=== PATIENT | male | born 1955 | race Caucasian/White ===

== ENCOUNTER 2023-07-31 17:01 | Inpatient (IN) | payer MEDICARE, OTHER, SELFPAY ==
[~2023-07-31] VITALS: Ht 182.9 cm; Wt 70.1 kg
[2023-07-31] MEDS ORDERED: levETIRAcetam INJection 1,000 MG in D5W 100 ML IV ONE (18:05)
[2023-07-31] MEDS ORDERED: dexAMETHasone 20MG/5ML VIAL IV ONE (18:10)
[2023-07-31 18:13] LABS: BASO # 0.1 10^3/uL (0.0-0.2); BASO % 0.5 % (0.0-1.0); EOS # 0.3 10^3/uL (0.0-0.5); EOS % 1.8 % (0.0-3.0); HEMATOCRIT 41.2 % (42.0-52.0); HEMOGLOBIN 13.9 g/dl (13.5-17.5); LYMPH # 1.3 10^3/uL (1.5-5.0); LYMPH % 9.2 % (24.0-44.0); MEAN CORPUSCULAR HEMOGLOBIN 26.8 pg (27.0-33.0); MEAN CORPUSCULAR HGB CONC 33.7 g/dl (32.0-36.5); MEAN CORPUSCULAR VOLUME 79.5 fl (80.0-96.0); MONO # 0.7 10^3/uL (0.0-0.8); MONO % 4.9 % (2.0-8.0); NEUTROPHILS # 12.1 10^3/uL (1.5-8.5); NEUTROPHILS % 83.1 % (36.0-66.0); PLATELET COUNT, AUTOMATED 481 10^3/uL (150-450); RED BLOOD COUNT 5.18 10^6/uL (4.30-6.10); WHITE BLOOD COUNT 14.6 10^3/uL (4.0-10.0)
[2023-07-31 18:24] LABS: ETHYL ALCOHOL (ETHANOL) < 0.003 % (0.000-0.010)
[2023-07-31 18:25] LABS: ACETAMINOPHEN LEVEL < 2.0 UG/ML (10.0-20.0)
[2023-07-31 18:26] LABS: ALKALINE PHOSPHATASE 114 U/L (46-116); ALT/SGPT < 9 U/L (7.0-40); AST/SGOT 15 U/L (<34); BILIRUBIN,DIRECT 0.3 MG/DL (<0.4); BILIRUBIN,TOTAL 0.7 MG/DL (0.3-1.2); BLOOD UREA NITROGEN 10 MG/DL (9-23); CALCIUM LEVEL 9.9 MG/DL (8.3-10.6); CARBON DIOXIDE LEVEL 22 MMOL/L (20-31); CHLORIDE LEVEL 96 MMOL/L (98-107); CREATININE FOR GFR 0.57 MG/DL (0.70-1.30); GLOMERULAR FILTRATION RATE > 60.0 (>49); GLUCOSE, FASTING 101 MG/DL (74-106); POTASSIUM SERUM 3.6 MMOL/L (3.5-5.1); SALICYLATE LEVEL < 3.0 MG/DL (<30); SODIUM LEVEL 128 MMOL/L (136-145); TOTAL PROTEIN 6.5 G/DL (5.7-8.2)
[2023-07-31 18:27] LABS: THYROID STIMULATING HORMONE 2.449 uIU/ML (0.55-4.78)
[2023-07-31 18:29] LABS: INR 1.18; PROTHROMBIN TIME 14.7 SECONDS (12.5-14.5)
[2023-07-31 18:30] LABS: PARTIAL THROMBOPLASTIN TIME 34.4 SECONDS (24.8-34.2)
[2023-07-31 18:35] LABS: RSV AMPLIFICATION NEGATIVE (NEGATIVE)
[2023-07-31] MEDS ORDERED: ISOVUE-370 76% 100ML VIAL As Ordered ONE (18:40)
[2023-07-31 19:23] VITALS: TEMP 98.1; O2SAT 97
[2023-07-31] MEDS ORDERED: guaiFENesin/CODEINE SYRUP 5 ML UDC PO PRN (21:10)
[2023-07-31] MEDS ORDERED: ONDANSETRON 4MG 2ML VIAL IV PRN (21:10)
[2023-07-31] MEDS ORDERED: MORPHINE 2 MG/ML 1ML VIAL IV PRN (21:10)
[2023-07-31] MEDS ORDERED: ACETAMINOPHEN TAB 650MG DOSE (2X325MG) PO PRN (21:10)
[2023-07-31] MEDS ORDERED: LORazepam 2 MG/ML 1ML VIAL IV PRN (21:10)
[2023-07-31] MEDS ORDERED: ONDANSETRON 4MG ORAL DISINTEGRATING TAB PO PRN (21:10)
[2023-07-31] MEDS ORDERED: IPRATROPIUM 0.5MG/ALBUTEROL 2.5MG INH SOL UD 3ML (DUONEB) NEB PRN (21:10)
[2023-08-01] MEDS: MORPHINE 10MG/0.5ML ORAL CONCENTRATE SOLUTION U/D SL PRN (15:57)
[2023-08-01] MEDS: SCOPOLAMINE 1MG TRANSDERMAL PATCH TOP PRN (17:12)
[2023-08-02] MEDS: MORPHINE 10MG/0.5ML ORAL CONCENTRATE SOLUTION U/D SL PRN ×2 (04:50→11:49)
[2023-08-02 07:32] VITALS: BP 212/98
[2023-08-02] MEDS: LORazepam 1 MG TAB PO PRN (11:49)
[2023-08-02] MEDS ORDERED: HYOSCYAMINE SULFATE 0.125 MG SUBL TABLET SL PRN (13:20)
[2023-08-02] MEDS: ACETAMINOPHEN 650MG SUPP PR PRN (14:04)
[2023-08-02] MEDS: ATROPINE SULFATE 1% OPHTH SOLN 2ML BTL SL PRN ×2 (15:25→22:29)
[2023-08-03] MEDS: ATROPINE SULFATE 1% OPHTH SOLN 2ML BTL SL PRN ×2 (02:11→13:15)
[2023-08-03] MEDS: MORPHINE 10MG/0.5ML ORAL CONCENTRATE SOLUTION U/D SL PRN ×2 (02:11→13:15)
[2023-08-03] MEDS: LORazepam 1 MG TAB PO PRN ×2 (02:41→13:15)
[2023-08-03] MEDS: ACETAMINOPHEN 650MG SUPP PR PRN (14:18)
[2023-08-04] MEDS: MORPHINE 10MG/0.5ML ORAL CONCENTRATE SOLUTION U/D SL PRN (10:39)
[2023-08-04] MEDS: LORazepam 1 MG TAB PO PRN (10:39)
[2023-08-04] MEDS: ACETAMINOPHEN 650MG SUPP PR PRN ×2 (10:53→18:07)
[2023-08-04] MEDS: SCOPOLAMINE 1MG TRANSDERMAL PATCH TOP PRN (18:07)
[2023-08-04] MEDS: ATROPINE SULFATE 1% OPHTH SOLN 2ML BTL SL PRN (18:15)
[2023-08-05] MEDS: LORazepam 1 MG TAB PO PRN (06:21)
== END 2023-08-05 08:01 | disposition expired | DRG 180 ==
LOC: M ED 17:01 → M ED INP 21:06 → M MS5PR 23:05
PROVIDERS: ADMIT Internal Medicine; ATTEND Internal Medicine
DX: C34.82 Malignant neoplasm of overlapping sites of left bronchus and lung (principal); J18.9 Pneumonia, unspecified organism; G93.41 Metabolic encephalopathy; G93.6 Cerebral edema; E87.1 Hypo-osmolality and hyponatremia; C79.31 Secondary malignant neoplasm of brain; C79.89 Secondary malignant neoplasm of other specified sites; Z51.5 Encounter for palliative care; Z66 Do not resuscitate; I71.43 Infrarenal abdominal aortic aneurysm, without rupture; Z87.891 Personal history of nicotine dependence; R56.9 Unspecified convulsions; F10.10 Alcohol abuse, uncomplicated; F32.A Depression, unspecified; R62.7 Adult failure to thrive